=== PATIENT | male | born 1965 | race Two or more races ===

== ENCOUNTER 2024-05-08 13:57 | Emergency (ER) | payer OTHER ==
[~2024-05-08] VITALS: Ht 177.8 cm; Wt 107.2 kg
--- NOTE | 2024-05-08 14:49 | DVH ---
CLINICAL INDICATION: PAIN, NO INJURY TECHNIQUE: XY L FOOT 3 VIEW XRAY Comparison: None FINDINGS/IMPRESSION: : No fracture. Small plantar and retrocalcaneal spurs Normal alignment
[2024-05-08] MEDS: IOHEXOL 300 MG/ML 100ML BOTTLE IJ ONE (15:06)
[2024-05-08] MEDS ORDERED: VANCOMYCIN 1GM/250ML KIT 250 ML IV ONE (15:15)
--- NOTE | 2024-05-08 15:17 | ED.PDOC ---
Musculoskeletal HPI Comments A 59 YEAR OLD MALE PRESENTS TO THE ED WITH COMPLAINT OF LEFT FOOT INFECTION. PATIENT STATES HE WAS DIAGNOSED WITH CELLULITIS OF HIS LEFT FOOT 2 WEEKS AGO AT A [facility] AND WAS PRESCRIBED KEFLEX AND ANTIFUNGAL MEDICATIONS, BUT NOTES IT ONLY CONTINUED TO GET WORSE. PATIENT REPORTS HE DEVELOPED INCREASED REDNESS, SWELLING, AND PUS DRAINAGE TO HIS LEFT FOOT OVER THE PAST 1 WEEK, PROMPTING HIM TO COME TO THE ED TODAY FOR EVALUATION. PATIENT DENIES FEVER, CHILLS, SHORTNESS OF BREATH, CHEST PAIN, ABDOMINAL PAIN, NAUSEA, VOMITING, HEADACHE, OR OTHER COMPLAINTS. NO OTHER SYMPTOMS OR MODIFYING FACTORS AT THIS TIME. PATIENT IS ALERT, ORIENTED X 4, AND HAS STEADY GAIT. Chief Complaint: Lower Extremity Time Seen by MD: 14:20 Reviewed Notes: Nurses Notes, Medications, Allergies Allergies: Coded Allergies: NO KNOWN ALLERGIES (Unverified , 05/08/24) Information Source: Patient Mode of Arrival: Ambulatory Location: Left Extremity Location: Foot Timing: Weeks Prehospital treatment: None Severity: Moderate Able to Move Extremity: Yes Bear Weight: Fully Pain: Moderate Mechanism: No Trauma, Spontaneous Circumstances: Spontaneous Onset of Symptoms: Spontaneous Symptoms: Swelling, Pain, Erythema DVT Risk Factors: NONE Last Tetanus: UTD, Unknown Associated signs and symptoms: Swelling, Foot pain Past Medical History PAST MEDICAL HISTORY: Denies Surgical History: Appendectomy, Cholecystectomy Family History Family History: Reviewed,noncontributory to illness Social History Smoker: Non-Smoker Alcohol: Occasionally Drugs: Denies Drug Use Lives In: Home Constitutional: denies: chills, diaphoresis, fatigue, fever, malaise, sweats, weakness, others EENTM: denies: blurred vision, double vision, ear bleeding, ear discharge, ear drainage, ear pain, ear ringing, eye pain, eye redness, hearing loss, mouth michaela n, mouth swelling, nasal discharge, nose bleeding, nose congestion, nose pain, photophobia, tearing, throat pain, throat swelling, voice changes, others Respiratory: denies: cough, hemoptysis, orthopnea, SOB at rest, shortness of breath, SOB with excertion, stridor, wheezing, others Cardiovascular: denies: chest pain, dizzy spells, diaphoresis, Dyspnea on exertion, edema, irregular heart beat, left arm pain, lightheadedness, palpitations, PND, syncope, others Gastrointestinal: denies: abdomen distended, abdominal pain, blood streaked bowels, constipated, diarrhea, dysphagia, difficulty swallowing, hematemesis, melena, nausea, poor appetite, poor fluid intake, rectal bleeding, rectal pain, vomiting, others Genitourinary: denies: burning, dysuria, flank pain, frequency, hematuria, incontinence, penile discharge, penile sore, pain, testicle pain, testicle swelling, urgency, others Neurological: denies: dizziness, fainting, headache, left sided numbness, left sided weakness, numbness, paresthesia, pre-existing deficit, right sided numbness, right sided weakness, seizure, speech problems, tingling, tremors, weakness, others Musculoskeletal: reports: joint pain, joint swelling; denies: back pain, gout, muscle pain, muscle stiffness, neck pain, others Integumetry: reports: wounds (SKIN PEELING WITH ERYTHEMA AND MILD DRAINAGE NOTED TO LEFT FOOT.), others (REDNESS, SWELLING, AND PUS DRAINAGE OF LEFT FOOT); denies: bruises, change in color, change in hair/nails, dryness, laceration, lesions, lumps, rash Allergic/Immunocompromised: denies: Difficulty Healing, Frequent Infections, Hives, Itching, others Hematologic/Lymphatic: denies: anemia, blood clots, easy bleeding, easy bruising, swollen glands, others Endocrine: denies: excessive hunger, excessive sweating, excessive thirst, excessive urination, flushing, intolerance to cold, intolerance to heat, unexplained weight gain, unexplained weight loss, others Psychiatric: denies: anxiety, bipolar disorder, depression, hopeless, panic disorder, schizophrenia, sleepless, suicidal, others All Other Systems: Reviewed and Negative Physical Exam General Appearance: No Apparent Distress, Normal HEENT: Normal ENT Inspection, PERRL/EOMI, Pharynx Normal, TMs Normal Neck: Full Range of Motion, Non-Tender, Normal, Normal Inspection Respiratory: Chest Non-Tender, Lungs Clear, No Accessory Muscle Use, No Respiratory Distress, Normal Breath Sounds Cardiovascular: No Edema, No JVD, No Murmur, No Gallop, Normal Peripheral Pulses, Regular Rate/Rhythm Breast Exam: Deferred Gastrointestinal: No Organomegaly, Non Tender, No Pulsatile Mass, Normal Bowel Sounds, Soft Genitalia: Deferred Pelvic: Deferred Rectal: Deferred Extremities: No calf tenderness, Normal capillary refill, Normal range of motion, No pedal edema, Swelling (ERYTHEMA AND SWELLING ON LEFT DORSAL FOOT, NO BONY TENDERNESS AND DEFORMITY. ), Tender (ERYTHEMA AND SWELLING ON LEFT DORSAL FOOT, +CELLULITIS. NO REDNESS AND SWELLING ON LEFT LOWER LEG, NO DVT SIGNS. ) Musculoskeletal : Apperance: Normal Neurologic: Alert, extrusion operator II-XII nml as Tested, No Motor Deficits, Normal Affect, Normal Mood, No Sensory Deficits Cerebellar Function: Normal Reflexes: Normal Skin: Dry, Warm, Other (LOCALIZED ERYTHEMA, SWELLING AND PEELING SKIN WITH DRAINAGE ON LEFT DORSAL FOOT, NO PUS DRAINAGE. ) Peripheral Pulses: 2+ carotid (R), 2+ carotid (L), 2+ dorsalis pedis (R), 2+ dorsalis pedis (L) Lymphatic: No Adenopathy Was a procedure done? Was a procedure done?: No Differential Diagnosis EXT Differential Diagnosis: Cellulitis, Deep Vein Thrombosis Other Differential Diagnosis ABSCESS, ARTERIAL COMPROMISE, ERYSIPELAS X-Ray, Labs, Meds, VS Vital Signs Date Time Temp Pulse Resp B/P (MAP) Pulse Ox O2 Delivery O2 Flow Rate FiO2 05/08/24 14:44 97.2 83 18 126/82 (97) 99 97.2 05/08/24 14:44 83 18 99 Room Air 05/08/24 14:14 97.2 83 18 126/82 (97) 99 97.2 Lab Test 05/08/24 15:04 Range/Units White Blood Count 6.6 4.4-10.8 10^3/uL Red Blood Count 4.94 4.5-5.90 10^6/uL Hemoglobin 15.8 13.5-17.5 g/dL Hematocrit 45.8 41.0-53.0 % Mean Corpuscular Volume 92.7 80.0-100.0 fL Mean Corpuscular Hemoglobin 32.0 28.0-32.0 pg Mean Corpuscular Hemoglobin Concent 34.5 32.0-36.0 g/dL Red Cell Distribution Width 13.1 11.8-14.3 % Platelet Count 123 L 140-450 10^3/uL Mean Platelet Volume 10.7 6.9-10.8 fL Neutrophils (%) (Auto) 72.0 37.0-80.0 % Lymphocytes (%) (Auto) 18.2 10.0-50.0 % Monocytes (%) (Auto) 6.9 0.0-12.0 % Eosinophils (%) (Auto) 2.5 0.0-7.0 % Basophils (%) (Auto) 0.4 0.0-2.0 % Neutrophils # (Auto) 4.8 1.6-8.6 10 ^3/uL Lymphocytes # (Auto) 1.2 0.4-5.4 10 ^3/uL Monocytes # (Auto) 0.5 0-1.3 10 ^3/uL Eosinophils # (Auto) 0.2 0-0.8 10 ^3/uL Basophils # (Auto) 0 0-0.2 10 ^3/uL Nucleated Red Blood Cells 0.2 % Sodium Level 142 136-145 mmol/L Potassium Level 4.1 3.5-5.1 mmol/L Chloride Level 107 98-107 mmol/L Carbon Dioxide Level 29 20-31 mmol/L Anion Gap 6 5-15 Blood Urea Nitrogen 13 9-23 mg/dL Creatinine 0.86 0.700-1.30 mg/dL Glomerular Filtration Rate Calc 100 >90 mL/min BUN/Creatinine Ratio 15.1 10.0-20.0 Serum Glucose 97 74-106 mg/dL Lactic Acid Level 1.4 0.4-2.0 mmol/L Calcium Level 10.2 8.7-10.4 mg/dL Current Medications Medications (Trade) Dose Ordered Sig/Yared Route Start Time Stop Time Status Last Admin Piperacillin Sod/ Tazobactam Sod 100 ml @ 100 mls/hr ONCE ONCE IV 05/08/24 15:15 05/08/24 16:14 DC 05/08/24 15:26 CLINICAL INDICATION: PAIN, NO INJURY TECHNIQUE: XY L FOOT 3 VIEW XRAY Comparison: None FINDINGS/IMPRESSION: : No fracture. Small plantar and retrocalcaneal spurs Normal alignment ATED BY: GABBIE GLASGOW MD DICTATED DATE/TIME: 05/08/241445 SIGNED BY: GABBIE GLASGOW MD SIGNED DATE/TIME: 05/08/241445 CC: Left Lower Extremity Arterial Duplex Clinical History: REDNESS AND SWELLING OF LEFT FOOT Comparison: None Technique: Duplex Doppler evaluation including color Doppler and spectral/pulsed waveform analysis of the lower extremity arteries was performed. Findings: Left: Peak systolic velocities are as follows: SPEEDER FRAME TENDER 79 cm/s SFA proximal 101 cm/s SFA mid-portion 71 cm/s SFA distal 77 cm/s Popliteal 34 cm/s Posterior tibial 63 cm/s Anterior tibial 58 cm/s Dorsalis pedis 63 cm/s The waveforms are triphasic with diastolic flow. IMPRESSION: 1. No hemodynamically significant stenosis based on peak systolic velocity criteria. REFERENCE VALUES, [facility] ([facility]) vascular Imaging Lab Criteria: Peak systolic velocity ranges (in cm/sec) are as follows: <150 cm/s - <20 % stenosis 150-200 cm/s - 20-49% stenosis 200-300 cm/s - 50-75% stenosis >300 cm/s -> 75% stenosis ATED BY: DANA MARINELLI MD DICTATED DATE/TIME: 05/08/24 1600 SIGNED BY: DANA MARINELLI MD SIGNED DATE/TIME: 05/08/24 1600 CC: EXAM: CT LT LOWER EXTREMITY W CONTRAS INDICATION: LEFT FOOT/ LOWER LEG PAIN/ SWELLING EXAM DATE: 05/08/2024 04:12 PM COMPARISON: None TECHNIQUE: Multiple axial CT images of the left distal lower extremity were obtained using bone algorithm. Axial and coronal reformatting was done. Bone and soft tissue windows were reviewed. IV contrast was administered Radiation Dose Information: CT Dose: CTDI volume is 7.75 mGy. Dose-length product is 540.58 mGy*cm Findings/Impression: There is no evidence of an acute fracture, dislocation, blastic, or lytic lesions. No radiopaque foreign bodies. No joint effusion. Mild soft tissue edema. No focal fluid collections or subcutaneous emphysema. No abnormal enhancement. ATED BY: NATASHA FAULKNER DO DICTATED DATE/TIME: 05/08/241727 SIGNED BY: NATASHA FAULKNER DO SIGNED DATE/TIME: 03/15/25 1728 CC: X-Ray, Labs, Meds, VS Comment EXTERNAL MEDICAL RECORDS REVIEWED: [NONE] INDEPENDENT HISTORIANS: [NONE] SOCIAL DETERMINANTS OF HEALTH: [NONE] LABS ORDERED: CBC, BMP, LACTIC ACID W/REFLEX, BLOOD CULTURE, WOUND CULTURE REVIEWED AND INTERPRETED RESULTS: NORMAL IMAGING ORDERED: XR FOOT LT, CT LOW EXT LT W-IV CONTRAST, US ARTERIAL LEFT LOW EXT TREATMENTS ORDERED: ZOSYN 3.375 G IV, VANCOMYCIN 1 G IV, TORADOL 30MG IV PROCEDURES PERFORMED: NONE CRITICAL CARE TIME: NONE I HAVE DISCUSSED THE PATIENT WITH THE ATTENDING PHYSICIAN DR. KANDACE LIMON AND SHE AGREES WITH THE PATIENT'S PLAN OF CARE. 1625: I HAVE CALLED [facility] AND HAVE SPOKEN TO DR. SPICER REGARDING THIS PATIENT'S CASE AND CONDITION AND SHE HAS ACCEPTED THE PATIENT FOR TRANSFER AT THIS TIME. AUTHORIZATION NUMBER IS #[id number]. 1700: [facility] HAS CALLED BACK AND HAS SAID THE PATIENT WILL BE TRANSFERRED TO [facility]. Images Reviewed?: Images reviewed and evaluated by me Time of 1ST Reevaluation: 17:00 Reevaluation 1ST: Unchanged Patient Education/Counseling: Diagnosis, Treatment Family Education/Counseling: Diagnosis, Treatment Departure 1 Departure Time of Disposition: 17:00 Impression: Primary Impression: Cellulitis of left foot Additional Impression: Failure of outpatient treatment Disposition: 02 SHORT TERM HOSPITAL Condition: Serious Critical Care Note Critical Care Time?: No Stability Stability form required: No Stable for transfer: Intended for transfer, To designated facility I personally scribed for ANANTH GALARZA ([email or web address]) on 05/08/24 at 15:17. Electronically submitted by Natanael Noe ([employer]). I personally scribed for ANANTH GALARZA ([email or web address]) on 05/08/24 at 16:14. Electronically submitted by Natanael Noe ([employer]). I personally scribed for ANANTH GALARZA ([email or web address]) on 05/08/24 at 16:19. Electronically submitted by Natanael Noe ([employer]). I personally scribed for ANANTH GALARZA ([email or web address]) on 05/08/24 at 16:34. Electronically submitted by Natanael Noe ([employer]). I personally scribed for ANANTH GALARZA ([email or web address]) on 05/08/24 at 17:14. Electronically submitted by Natanael Noe ([email or web address]). I personally scribed for ANANTH GALARZA ([email or web address]) on 05/08/24 at 17:34. Electronically submitted by Natanael Noe ([employer]). ANANTH GALARZA May 08, 2024 15:17
[2024-05-08] MEDS: PIPERACILLIN-TAZOB 3.375GM 100 ML IV ONE (15:26)
[2024-05-08 15:33] LABS: Basophils # (auto) 0 10 ^3/uL (0-0.2); Basophils % (auto) 0.4 % (0.0-2.0); Eosinophils # (auto) 0.2 10 ^3/uL (0-0.8); Eosinophils % (auto) 2.5 % (0.0-7.0); Hematocrit 45.8 % (41.0-53.0); Hemoglobin 15.8 g/dL (13.5-17.5); Lymphocytes # (auto) 1.2 10 ^3/uL (0.4-5.4); Lymphocytes % (auto) 18.2 % (10.0-50.0); Mean Corpuscular Hgb Conc. 34.5 g/dL (32.0-36.0); Mean Corpuscular Volume 92.7 fL (80.0-100.0); Monocytes # (auto) 0.5 10 ^3/uL (0-1.3); Monocytes % (auto) 6.9 % (0.0-12.0); Neutrophils # (auto) 4.8 10 ^3/uL (1.6-8.6); Nucleated Red Blood Cells % 0.2 %; Platelet Count (auto) 123 10^3/uL (140-450); Red Blood Cells 4.94 10^6/uL (4.5-5.90); Red Cell Distribution Width 13.1 % (11.8-14.3); White Blood Cell 6.6 10^3/uL (4.4-10.8)
[2024-05-08 15:44] LABS: Potassium 4.1 mmol/L (3.5-5.1); Sodium 142 mmol/L (136-145)
[2024-05-08 15:45] LABS: Anion Gap 6 (5-15); Calcium 10.2 mg/dL (8.7-10.4); Carbon Dioxide 29 mmol/L (20-31)
[2024-05-08 15:50] LABS: BUN/Creatinine Ratio 15.1 (10.0-20.0); Blood Urea Nitrogen 13 mg/dL (9-23); Chloride 107 mmol/L (98-107); Glucose 97 mg/dL (74-106)
--- NOTE | 2024-05-08 16:03 | DVH ---
Left Lower Extremity Arterial Duplex Clinical History: REDNESS AND SWELLING OF LEFT FOOT Comparison: None Technique: Duplex Doppler evaluation including color Doppler and spectral/pulsed waveform analysis of the lower extremity arteries was performed. Findings: Left: Peak systolic velocities are as follows: MANGANESE WHEELER 79 cm/s SFA proximal 101 cm/s SFA mid-portion 71 cm/s SFA distal 77 cm/s Popliteal 34 cm/s Posterior tibial 63 cm/s Anterior tibial 58 cm/s Dorsalis pedis 63 cm/s The waveforms are triphasic with diastolic flow. IMPRESSION: 1. No hemodynamically significant stenosis based on peak systolic velocity criteria. REFERENCE VALUES, [facility] ([facility]) vascular Imaging Lab Criteria: Peak systolic velocity ranges (in cm/sec) are as follows: <150 cm/s - <20 % stenosis 150-200 cm/s - 20-49% stenosis 200-300 cm/s - 50-75% stenosis >300 cm/s -> 75% stenosis
[2024-05-08] MEDS: KETOROLAC TROMETH 30 MG/ML 1ML VIAL IV ONE (16:37)
--- NOTE | 2024-05-08 17:31 | DVH ---
EXAM: CT LT LOWER EXTREMITY W CONTRAS INDICATION: LEFT FOOT/ LOWER LEG PAIN/ SWELLING EXAM DATE: 05/08/2024 04:12 PM COMPARISON: None TECHNIQUE: Multiple axial CT images of the left distal lower extremity were obtained using bone algor ithm. Axial and coronal reformatting was done. Bone and soft tissue windows were reviewed. IV contrast was administered Radiation Dose Information: CT Dose: CTDI volume is 7.75 mGy. Dose-length product is 540.58 mGy*cm Findings/Impression: There is no evidence of an acute fracture, dislocation, blastic, or lytic lesions. No radiopaque foreign bodies. No joint effusion. Mild soft tissue edema. No focal fluid collections or subcutaneous emphysema. No abnormal enhancement.
[2024-05-08] MEDS: VANCOMYCIN 1GM/250ML KIT 250 ML IV ONE (17:40)
[2024-05-08] MEDS: SODIUM CHLORIDE 0.9% 1,000 ML IV ONE (18:03)
[2024-05-08 19:20] VITALS: PULSE 77; RESP 18; O2SAT 96
[2024-05-08 20:00] VITALS: BP 131/79; PULSE 74; RESP 17; TEMP 97.9; O2SAT 96
== END 2024-05-08 20:07 | disposition short-term general hospital (02) ==
LOC: ER 14:03
DX: L03.116 Cellulitis of left lower limb (principal); M77.32 Calcaneal spur, left foot; Z90.49 Acquired absence of other specified parts of digestive tract
CPT/HCPCS: 36415; 73630; 73701; 80048; 83605; 85025; 87040; 87077; 87186; 87205; 93926; 96365; 96367; 99285; J1885; J2543; J3370; Q9967